=== PATIENT | female | born 1980 | race Caucasian/White ===

== ENCOUNTER 2016-11-08 16:34 | Emergency (ER) | payer OTHER | END 2016-11-08 17:45 | disposition home or self-care (01) | LOC: FER 16:34 | DX: S81.811A Laceration without foreign body, right lower leg, initial encounter (principal); F17.210 Nicotine dependence, cigarettes, uncomplicated; Z23 Encounter for immunization; Z88.0 Allergy status to penicillin; Z88.8 Allergy status to other drugs, medicaments and biological substances; V29.9XXA Motorcycle rider (driver) (passenger) injured in unspecified traffic accident, initial encounter; Y92.009 Unspecified place in unspecified non-institutional (private) residence as the place of occurrence of the external cause | CPT/HCPCS: 90471; 90715 ==

== ENCOUNTER 2021-10-05 05:34 | Emergency (ER) | payer OTHER ==
[2021-10-05 05:58] LABS: BILIRUBIN NEGATIVE (NEGATIVE); BLOOD 1+ Ery/uL (NEGATIVE); CLARITY CLEAR (CLEAR); COLOR YELLOW (YELLOW); GLUCOSE (U) NORMAL (NORMAL); LEUKOCYTES 1+ Leu/uL (NEGATIVE); NITRITE NEGATIVE (NEGATIVE); PROTEIN 1+ mg/dL (NEGATIVE); SPECIFIC GRAVITY 1.025 (1.001-1.030); UROBILINOGEN 0.2 mg/dL (0.2-1.0); pH 6.5 (5.0-9.0)
[2021-10-05 06:16] LABS: BACTERIA 4+
[2021-10-05 06:18] LABS: BARBITURATES NEGATIVE (NEGATIVE); ECSTASY (MDMA) POSITIVE (NEGATIVE); MARIJUANA (THC) POSITIVE (NEGATIVE); METHADONE NEGATIVE (NEGATIVE); OPIATES NEGATIVE (NEGATIVE)
[2021-10-05 06:19] LABS: AMPHETAMINES POSITIVE (NEGATIVE); OXYCODONE NEGATIVE (NEGATIVE)
[2021-10-05] MEDS ORDERED: BACTRIM DS TAB1 EACH PO (06:36)
== END 2021-10-05 06:35 | disposition home or self-care (01) ==
LOC: FER 05:34 → EDBD 05:34 → FER 06:35
PROVIDERS: Internal Medicine
DX: T50.901A Poisoning by unspecified drugs, medicaments and biological substances, accidental (unintentional), initial encounter (principal); R40.4 Transient alteration of awareness; R41.0 Disorientation, unspecified; F11.10 Opioid abuse, uncomplicated; N39.0 Urinary tract infection, site not specified; Z88.0 Allergy status to penicillin; Z88.8 Allergy status to other drugs, medicaments and biological substances
CPT/HCPCS: 80305; 81001; 87076; 87088; 87186; 99284; J0696

== ENCOUNTER → 2021-12-06 | Day surgery (SDC) | payer OTHER ==
[~2021-12-06] VITALS: Ht 157.5 cm; Wt 54.4 kg
[~2021-12-06] MED LIST: BACTRIM DS TAB1 EACH PO
[2021-12-06 07:03] LABS: BASOPHIL 0.9 % (0-2); EOSINOPHIL 0.6 % (0-5); HCT 40.4 % (37.0-47.0); LYMPHOCYTE 22.1 % (15-48); MCH 29.3 pg (25.0-31.0); MCHC 32.2 g/dL (32.0-36.0); MONOCYTE 8.4 % (0-12); MPV 9.7 fL (6.0-9.5); NEUTROPHIL 67.7 % (41-80); NRBC 0; PLT 346 K/uL (150-400); RBC 4.44 M/uL (4.20-5.40); RDW 12.7 % (11.5-14.0); WBC 9.4 K/uL (4.0-10.5)
== END | disposition home or self-care (01) ==
LOC: FAS 07:30
PROVIDERS: Oral & Maxillofacial Surgery
DX: K02.9 Dental caries, unspecified (principal); K05.6 Periodontal disease, unspecified; F41.9 Anxiety disorder, unspecified; F32.A Depression, unspecified; J45.909 Unspecified asthma, uncomplicated; F17.290 Nicotine dependence, other tobacco product, uncomplicated; Z88.0 Allergy status to penicillin; Z88.8 Allergy status to other drugs, medicaments and biological substances
CPT/HCPCS: D7140 ×14; D7210 ×3; D7310; 36415; 85025; J1100; J1170; J2250; J2704; J2710; J3010; J7120